=== PATIENT | male | born 1970 | race Caucasian/White ===

== ENCOUNTER 2024-06-16 12:05 | Emergency (ER) | payer SELFPAY ==
[2024-06-16 12:10] VITALS: BP 147/90
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
[2024-06-16 12:56] VITALS: BP 129/78
[2024-06-16 13:48] VITALS: BP 133/84
[2024-06-16] MEDS: MOTRIN 600 MG PO (14:22)
[2024-06-16] MEDS: PERCOCET 5/325 1 TABLET PO (14:22)
== END 2024-06-16 14:00 | disposition home or self-care (01) ==
LOC: EMR 12:05
PROVIDERS: EMERGENCY PHYSICIAN Emergency Medicine
DX: S70.02XA Contusion of left hip, initial encounter (principal); M79.661 Pain in right lower leg; V89.2XXA Person injured in unspecified motor-vehicle accident, traffic, initial encounter; F17.200 Nicotine dependence, unspecified, uncomplicated
CPT/HCPCS: 99283; 73502; 73590